=== PATIENT | male | born 1985 | race Caucasian/White ===

== ENCOUNTER 2024-02-17 15:10 | Emergency (ER) | payer OTHER, SELFPAY ==
[2024-02-17] VITALS (33 sets, daily range): BP systolic 148–173; BP diastolic 90–116; PULSE 103–145; TEMP 37.3; O2SAT 83–100; BMI 35.4
--- NOTE | 2024-02-17 15:24 | XR_ITS ---
The [address] [address] Patient Name: KSENIA GARCIA MRN: [id number] date: 1985 Sex: M Assigned Patient Location: ER Current Patient Location: ER Accession/Order Number: [id number] Exam Date: 02/17/2024 15:35 Report Date: 02/17/2024 15:52 At the request of: DENIA WEST Procedure: XR chest 1V EXAMINATION: XR chest 1V HISTORY: Palpitations, near-syncope COMPARISON: No relevant comparison available. FINDINGS: LUNGS: Underexpanded lungs. No significant pulmonary parenchymal abnormalities. VASCULATURE: No increased pulmonary vasculature. PLEURA: No pneumothorax, effusion, or pleural thickening. CARDIAC: No cardiomegaly or cardiac silhouette abnormality. MEDIASTINUM: No visible mass or adenopathy. BONES: No fracture or visible bone lesion. OTHER: Negative. XR/XR chest 1V IMPRESSION: 1. Low lung volume examination. No acute cardiopulmonary process. Electronically authenticated by: LUANA DARDEN Date: 02/17/2024 15:52
--- NOTE | 2024-02-17 15:24 | ECG_ITS ---
The [facility] Test Date: 2024-02-17 Pat Name: KSENIA GARCIA Department: Room: - Gender: Male Manager Ems: : 1985 Requested By: Order Number: [id number] Reading MD: CLIFFORD BIANCHI Measurements Intervals [place] Rate: 130 P: 55 NE: 144 QRS: 68 QRSD: 86 T: 7 QT: 330 QTc: 407 Interpretive Statements 1120 Sinus tachycardia [address] depression [address] & Twave abnormality 9150 abnormal ECG No previous ECG available for comparison Electronically Signed On 02-17-2024 17:54:25 EDT by CLIFFORD BIANCHI
--- NOTE | 2024-02-17 15:25 | ED_ITS ---
<Statement entered by Maria Elena Oglesby MD - 02/21/24 07:48> This documentation has been reviewed and approved. HPI - Dizziness General Chief Complaint: Dizziness Stated Complaint: Dizziness Time Seen by Provider: 02/17/24 15:24 Source: patient Mode of arrival: Wheelchair Limitations: no limitations History of Present Illness HPI Narrative: 38 year old male presents to the ED for palpitations, near-syncope, dizziness. Onset was while at work today. States he became dizzy and felt like he was going to lose consciousness. He grabbed onto an object next to him to steady himself. This lasted for 1-2 minutes. His coworkers reported he was pale. He is starting to feel better. He has mild dizziness at this time and states he can feel his heart fluttering. Denies fever, chills, BOSWELL, vision changes. Denies CP, SOB, back pain. Denies abd pain, N/V/D. Denies recent illness, travel, or surgery. He does not take any medications. Denies significant medical history. He states he has never felt like this before. Denies pain. Related Data Home Medications ?Medication ?Instructions ?Recorded ?Confirmed No Known Home Medications 02/17/24 02/17/24 Allergies Allergy/AdvReac Type Severity Reaction Status Date / Time No Known Drug Allergies Allergy Verified 02/17/24 15:22 Review of Systems ROS Constitutional Denies: fever or chills Eyes Denies: change in vision or blurry vision Ears, nose, mouth, and throat Denies: throat pain or neck pain Cardiovascular Reports: palpitations and lightheadedness; Denies: chest pain, edema or swelling of feet/ankles Respiratory Denies: shortness of breath or cough Gastrointestinal Denies: abdominal pain, nausea, vomiting or diarrhea Musculoskeletal Denies: back pain, neck pain or extremity pain Neurological Reports: dizziness; Denies: headache, numbness in extremities or weakness in extremities Exam Constitutional Vital Signs, click to edit/add: Last Vital Signs Temp 99.2 F 02/17/24 19:27 Pulse 109 H 02/17/24 19:27 Resp 15 02/17/24 19:27 BP 150/100 H 02/17/24 19:27 Pulse Ox 95 02/17/24 19:27 O2 Del Method Room Air 02/17/24 19:27 Documenting provider has reviewed patient's vital signs: yes Common normals: no apparent distress and oriented x3 General appearance: cooperative HENMT Common normals: normocephalic and external ears normal Face and sinus: normal facial exam Mouth: oral and palatal mucosa normal, lip normal and moist mucous membranes abnormal (Dry) Throat: posterior oropharynx normal Eye Common normals: PERRL, EOMs intact bilaterally, conjunctivae normal and no scleral icterus Neck & C-Spine Common normals: supple and no JVD Chest Chest: symmetrical chest wall rise Respiratory Common normals: normal respiratory effort, no retractions and clear to auscultation bilaterally Effort & inspection: able to speak in complete sentences and symmetric chest movement Cardio Common normals: regular rhythm Rate: tachycardic Neuro Common normals: oriented x3, CN's II-XII intact bilaterally, moves all extremities, no focal motor deficits and no sensory deficits noted Sensorium/orientation: awake and alert Speech: speech normal Gait (neuro): normal gait Psych Activity/motor behavior: restless Mood and affect: anxious Course Vital Signs Vital signs: Vital Signs Blood Pressure 173/112 H 02/17/24 15:16 Pulse Oximetry 98 02/17/24 15:16 Temperature 99.2 F 02/17/24 19:27 Pulse Rate 109 H 02/17/24 19:27 Respiratory Rate 15 02/17/24 19:27 Blood Pressure 150/100 H 02/17/24 19:27 Pulse Oximetry 95 02/17/24 19:27 Oxygen Delivery Method Room Air 02/17/24 19:27 MDM - Dizziness MDM Narrative Medical decision making narrative: Laboratory studies were unremarkable. Chest x-ray showed no acute findings. The patient had improvement with IV fluids, Lopressor. He appeared anxious and was restless or pacing around the room throughout his ED visit. He will be discharged home at the recommendation of the ED physician. He was encouraged to follow up with his pcp and cardiology for a recheck, further evaluation and treatment. Return precautions were discussed. Medical Records Attestation: I reviewed the patient's medical records. Lab Data Attestation: I reviewed the patient's lab results. Labs: Lab Results 02/17/24 02/17/24 Range/Units 15:25 17:57 WBC 10.4 (4.0-11.0) 10^3/uL RBC 6.09 (4.70-6.10) 10^6/uL Hgb 17.0 (14.0-18.0) g/dL Hct 47.8 (42.0-54.0) % MCV 78.5 L (80.0-94.0) fL MCH 27.9 (25.9-34.0) pg MCHC 35.6 H (29.9-35.2) g/dL RDW 12.2 (11.0-15.0) % Plt Count 213 (150-450) 10^3/uL MPV 11.6 (9.5-13.5) fL Neut % (Auto) 66.2 (43.0-75.0) % Lymph % (Auto) 22.3 (20.5-60.0) % [place] % (Auto) 10.0 (1.7-12.0) % Eos % (Auto) 0.5 L (0.9-7.0) % Baso % (Auto) 0.7 (0.2-2.0) % Neut # (Auto) 6.9 H (1.4-6.5) 10^3/uL Lymph # (Auto) 2.3 (1.2-3.8) 10^3/uL [place] # (Auto) 1.0 H (0.3-0.8) 10^3/uL Eos # (Auto) 0.1 (0.0-0.7) 10^3/uL Baso # (Auto) 0.1 (0.0-0.1) 10^3/uL Abs Immat Gran (auto) 0.03 (0.00-0.03) 10^3/uL Imm/Tot Granulo (auto) 0.3 (0.0-0.5) % Sodium 136 (136-145) mmol/L Potassium 3.3 L (3.5-5.1) mmol/L Chloride 100 (98-107) mmol/L Carbon Dioxide 27.0 (21.0-32.0) mmol/L Anion Gap 12.3 BUN 20.0 H (7.0-18.0) mg/dL Creatinine 1.14 (0.70-1.30) mg/dL Est GFR ( Amer) >60 (>=60) Est GFR (Non-Af Amer) >60 (>=60) BUN/Creatinine Ratio 17.5 Glucose 151 H (74-106) mg/dL Calcium 9.3 (8.5-10.1) mg/dL Magnesium 1.9 (1.8-2.4) mg/dL Total Bilirubin 0.3 (0.2-1.0) mg/dL AST 23 (15-37) U/L ALT 60 (16-63) U/L Alkaline Phosphatase 61 (46-116) U/L Troponin I High Sens <4.0 L <4.0 L (4.0-76.1) pg/mL Total Protein 7.9 (6.4-8.2) g/dL Albumin 4.4 (3.4-5.0) g/dL Globulin 3.5 g/dL Albumin/Globulin Ratio 1.3 Imaging Data Chest x-ray: Attestation: I have reviewed the pertinent imaging results. Radiologist's impression: ITS Impressions Chest X-Ray 02/17/24 15:24 IMPRESSION: 1. Low lung volume examination. No acute cardiopulmonary process. Electronically authenticated by: LUANA DARDEN Date: 02/17/2024 15:52 ECG Data Attestation: ?I have reviewed the pertinent ECG results. Interpretation: Measurements Intervals [place] Rate: 130 P: 55 IN: 144 QRS: 68 QRSD: 86 T: 7 QT: 330 QTc: 407 Interpretive Statements 1120 Sinus tachycardia [address] depression [address] & Twave abnormality 9150 abnormal ECG No previous ECG available for comparison Electronically Signed On 02-17-2024 17:54:25 EDT by CLIFFORD BIANCHI Discharge Plan Discharge Stand Alone Forms: Portal Instructions Chief Complaint: Dizziness Clinical Impression: Near syncope, Sinus tachycardia Patient Disposition: Home, Self-Care Time of Disposition Decision: 19:19 Condition: Good Mode of Transportation: Private Vehicle Prescriptions / Home Meds: No Action No Known Home Medications Print Language: Sami Instructions: Hypertension (ED), Near Syncope (ED), Tachycardia (ED) Additional Instructions: Return to the ER for new or worsening symptoms. Referrals: Physician,Non-Staff, MD [Primary Care Provider] - 1 week Discharge Date/Time: 02/17/24 19:33
[2024-02-17] MEDS: 0.9 % SODIUM CHLORIDE 1,000 ML 999 ML IV (15:29)
[2024-02-17 15:33] LABS: Basophils Absolute Auto 0.1 10^3/uL (0.0-0.1); Basophils Percent Auto 0.7 % (0.2-2.0); Eosinophils Absolute Auto 0.1 10^3/uL (0.0-0.7); Eosinophils Percent Auto 0.5 % (0.9-7.0); Hematocrit 47.8 % (42.0-54.0); Immature Granulocytes Abs Auto 0.03 10^3/uL (0.00-0.03); Immature Granulocytes Pct Auto 0.3 % (0.0-0.5); Lymphocytes Absolute Auto 2.3 10^3/uL (1.2-3.8); Lymphocytes Percent Auto 22.3 % (20.5-60.0); Mean Corpuscular HGB Conc 35.6 g/dL (29.9-35.2); Mean Corpuscular Hemoglobin 27.9 pg (25.9-34.0); Mean Corpuscular Volume 78.5 fL (80.0-94.0); Mean Platelet Volume 11.6 fL (9.5-13.5); Neutrophils Absolute Auto 6.9 10^3/uL (1.4-6.5); Neutrophils Percent Auto 66.2 % (43.0-75.0); Platelet Count 213 10^3/uL (150-450); Red Blood Count 6.09 10^6/uL (4.70-6.10); Red Cell Distribution Width 12.2 % (11.0-15.0); White Blood Count 10.4 10^3/uL (4.0-11.0)
[2024-02-17 15:59] LABS: Alanine Aminotransferase 60 U/L (16-63); Albumin Globulin Ratio 1.3; Albumin Level 4.4 g/dL (3.4-5.0); Alkaline Phosphatase 61 U/L (46-116); Anion Gap 12.3; Aspartate Amino Transferase 23 U/L (15-37); BUN Creatinine Ratio 17.5; Bilirubin Total 0.3 mg/dL (0.2-1.0); Calcium 9.3 mg/dL (8.5-10.1); Chloride 100 mmol/L (98-107); Estimated GFR (African America >60 (>=60); Estimated GFR (Non-African Ame >60 (>=60); Globulin 3.5 g/dL; Glucose 151 mg/dL (74-106); Magnesium 1.9 mg/dL (1.8-2.4); Potassium 3.3 mmol/L (3.5-5.1); Sodium 136 mmol/L (136-145); Total Protein 7.9 g/dL (6.4-8.2); Troponin I High Sensitivity <4.0 pg/mL (4.0-76.1)
[2024-02-17] MEDS: METOPROLOL TARTRATE 5 MG/5 ML VIAL IVP (16:27)
[2024-02-17] MEDS: 0.9 % SODIUM CHLORIDE 1,000 ML 1000 ML IV (16:41)
[2024-02-17 18:19] LABS: Troponin I High Sensitivity <4.0 pg/mL (4.0-76.1)
== END 2024-02-17 19:33 | disposition home or self-care (01) ==
PROVIDERS: Nurse Practitioner Family; Emergency Provider Emergency Medicine
DX: R55 Syncope and collapse (principal); R00.0 Tachycardia, unspecified
CPT/HCPCS: 36415; 71045; 80053; 83735; 84484; 85025; 93005; 96361; 96374; 99285